=== PATIENT | female | born 1965 | race Caucasian/White ===

== ENCOUNTER 2023-08-29 18:37 | Emergency (ER) | payer OTHER, SELFPAY ==
[2023-08-29 18:45] VITALS: BP 141/80
[2023-08-29] MEDS: VIBRAMYCIN 100 MG PO (19:13)
--- NOTE | 2023-08-29 20:35 | ED.SKININJ ---
HPI-Injury
General
Chief Complaint: Bite
Source: patient
Exam Limitations: none
Time Seen by Provider: 08/29/23 18:50
Nursing documentation reviewed up to this point in time: agreed with
History of Present Illness-Injury
Is this injury a work related problem?: No
Is pt an associate of [facility]/[place]?: No
Initial Injury comments:
Patient to ED for eval of erythema and swelling to right lower back. Symptms started 2 days ago. Denies fever/chills. No prior history of same.
Past History
Past History
ED Past Medical History: None
ED Past Surgical History: None
Review of Systems
Review of Systems
Allergies reviewed?: Yes
All Other Systems: ROS reviewed and negative except as documented in HPI and ROS
Constitutional: Reports no symptoms
Musculoskeletal: Reports no symptoms
Skin: Reports other (erythema and swelling to right lower back.)
Neurological: Reports no symptoms
Psychiatric: Reports no symptoms
Phy Exam
General Physical Exam
General Presentation: well appearing and no apparent distress
General age: appears stated age
General Skin: warm and dry
General Habitus: normal
Musculoskeletal Exam
Musculoskeletal Exam: full ROM and neuro vasc intact
Skin Exam
Skin Exam: warm/dry and other (3.5cm area of erythema and swelling to right lower back. Firm, no fluctuance. Will treat for cellulitis, early abscess formation,)
Psychiatric Exam
Psychiatric Exam: normal mood/affect
Course
Orders/Labs/Results
Orders:
Orders
08/29/23 18:58
Doxycycline [Vibramycin] 100 mg PO NOW STA
Vital Signs
Initial and Last Documented VS:
Initial Vital Signs
Temp Pulse Resp BP Pulse Ox
99.4 F 74 18 141/80 99
08/29/23 18:45 08/29/23 18:45 08/29/23 18:45 08/29/23 18:45 08/29/23 18:45
Last Documented Vital Signs
Temp Pulse Resp BP Pulse Ox
99.4 F 74 18 141/80 99
08/29/23 18:45 08/29/23 18:45 08/29/23 18:45 08/29/23 18:45 08/29/23 18:45
*Critical Care Note
Total Time (30-74mins, 75-104mins- exclusive of procedures): Not Applicable
ED Attending Note
-
Portions of this chart may have been created with voice recognition software.� Occasional wrong word or��sound alike� substitutions may have occurred due to the inherent limitations of voice recognition software.
Discharge Plan
Departure
Patient Disposition: Home (Routine Discharge)
Date of Disposition: 08/29/23
Time of Disposition: 18:59
Patient with high blood pressure during this ER visit?: No
Condition: Good
Covid-19: Not Applicable
Discharge Problem:
Insect bite
Instructions: Insect Bites and Stings (DC)
Prescriptions:
New
doxycycline hyclate 100 mg capsule
100 mg PO BID Qty: 14 0RF
Activity Restrictions/Additional Instructions:
Follow up with your family doctor.
Interventions
Interventions:
*Risk Screen - Suicide Last Done: 08/29/23 18:45
*General Assessment Last Done: 08/29/23 18:45
*Neglect/Abuse Screening Last Done: 08/29/23 18:45
ED- Fall Risk Assessment Last Done: 08/29/23 19:07
*ED COVID-19 Vaccine History Last Done: 08/29/23 19:17
*Nursing Disposition Last Done: 08/29/23 19:16
ED-Skin Assessment Last Done: 08/29/23 19:07
Discharge Date and Time
Discharge Date/Time: 08/29/23 19:17
Print Language: [id number]
== END 2023-08-29 19:17 | disposition home or self-care (01) ==
LOC: EMR 18:37
PROVIDERS: EMERGENCY PHYSICIAN Emergency Medicine; FAMILY PHYSICIAN Nurse Practitioner Family
DX: S30.860A Insect bite (nonvenomous) of lower back and pelvis, initial encounter (principal); W57.XXXA Bitten or stung by nonvenomous insect and other nonvenomous arthropods, initial encounter
CPT/HCPCS: 99282